=== PATIENT | female | born 1975 | race Caucasian/White ===

== ENCOUNTER 2024-09-10 14:28 | Emergency (ER) | payer MEDICAID, SELFPAY ==
[2024-09-10 15:03] VITALS: PULSE 79; RESP 18; O2SAT 98; BMI 26.6
[2024-09-10 15:15] VITALS: BP 146/100; PULSE 77; RESP 18; TEMP 36.7; O2SAT 99; BMI 29.4
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
[2024-09-10 16:51] VITALS: BP 124/76; PULSE 84; RESP 18; TEMP 36.6; O2SAT 99
== END 2024-09-10 17:57 | disposition left against medical advice (07) ==
PROVIDERS: Emergency Provider Family Medicine
DX: S00.93XA Contusion of unspecified part of head, initial encounter (principal); S50.12XA Contusion of left forearm, initial encounter; Y00.XXXA Assault by blunt object, initial encounter
CPT/HCPCS: 70450; 73090; 99284